=== PATIENT | female | born 1960 | race Asian ===

== ENCOUNTER 2018-05-21 10:33 | Emergency (ER) | payer SELFPAY ==
[~2018-05-21] VITALS: Ht 162.6 cm; Wt 59.0 kg
--- NOTE | 2018-05-21 10:36 | NUR ---
Arrived via BLS ambulance with compliant of dizziness and vomiting. Placed in room 1. Placed on desk monitor, blood pressure machine and pulse oximeter. To gown for exam. Side rails up. Report given to Moe JAY.
[2018-05-21 10:39] VITALS: BP_SYST 146
--- NOTE | 2018-05-21 10:45 | NUR ---
PATIENT SITTING SEMI-KRAFT'S IN BED. AAOx4. RESPIRATIONS EVEN AND UNLABORED. DENIES OF ANY SOB OR CHEST PAIN. PATIENT WITH C/O DIZZINESS, NAUSEA, AND VOMITING WHICH STARTED APPROXIMATELY 30 MINUTES PRIOR TO ARRIVAL. REST AND RELAXATION ENCOURAGED. Placed on blood pressure machine and pulse oximeter. To gown for exam. Side rails up.
--- NOTE | 2018-05-21 10:49 | NUR ---
ER Dr. BAH at bedside examining patient.
[2018-05-21] MEDS ORDERED: ONDANSETRON HCL 4 MG/2 ML VIAL IVP ONE (11:00)
[2018-05-21] MEDS ORDERED: NACL 0.9% 1,000 ML IV ONE (11:00)
[2018-05-21] MEDS ORDERED: ONDANSETRON HCL 4 MG/2 ML VIAL ONE (11:02)
--- NOTE | 2018-05-21 11:06 | NUR ---
Medicated per MD orders. IVF infusing with no s/s of infiltration at this time. Will cont to monitor
[2018-05-21 11:15] LABS: BASOPHILS % (AUTO) 0.4 % (0.0-2.0); EOSINOPHILS % (AUTO) 0.1 % (0.0-4.0); HEMATOCRIT 45.6 % (36-48); HEMOGLOBIN 15.1 g/dL (12.0-16.0); LYMPHOCYTES # (AUTO) 1.9 K/uL (1.0-5.5); LYMPHOCYTES % (AUTO) 30.7 % (20.5-51.5); MEAN CORPUSCULAR HEMOGLOBIN 29 pg (27-31); MEAN CORPUSCULAR HGB CONC 33 % (32-36); MEAN CORPUSCULAR VOLUME 89 fL (79.0-98.0); MONOCYTES # (AUTO) 0.2 K/uL (0.0-1.0); MONOCYTES % (AUTO) 2.6 % (1.7-9.3); NEUTROPHILS # (AUTO) 4.1 K/uL (1.8-7.7); NEUTROPHILS % (AUTO) 66.2 % (40.0-70.0); PLATELET COUNT (AUTO) 301 K/uL (130-430); RED BLOOD CELL COUNT(AUTO) 5.13 MIL/uL (4.2-6.2); RED CELL DISTRIBUTION WIDTH 12.5 % (9.0-15.0); WHITE BLOOD COUNT (AUTO) 6.2 K/uL (4.8-10.8)
[2018-05-21 11:25] LABS: CALCIUM 9.3 mg/dL (8.4-11.0); CREATININE 0.61 mg/dL (0.55-1.30); POTASSIUM 3.3 mmol/L (3.5-5.1)
[2018-05-21 11:29] LABS: TOTAL BILIRUBIN 0.9 mg/dL (0.0-1.0)
--- NOTE | 2018-05-21 11:30 | NUR ---
# 14 FR In and Out catheter with use of sterile technique. Immediate return of 300 ml clear yellow urine noted. Urine sample collected and sent to lab. Pt tolerated procedure well. Patient unable to toilet self. Attempted on the bed magallanes 2x.
--- NOTE | 2018-05-21 11:31 | NUR ---
Off unit for CT via [facility]
[2018-05-21 12:10] LABS: BILIRUBIN,URINE NEGATIVE (NEGATIVE); BLOOD, URINE NEGATIVE (NEGATIVE); CLARITY/URINE CLEAR (CLEAR); COLOR,URINE YELLOW (YELLOW); GLUCOSE,URINE NEGATIVE (NEGATIVE); KETONES,URINE NEGATIVE (NEGATIVE); LEUKOCYTE ESTERASE ,URINE NEGATIVE (NEGATIVE); NITRITE, URINE NEGATIVE (NEGATIVE); PROTEIN URINE 1+ (NEGATIVE); UROBILINOGEN,URINE 0.2 (0.2-1.0)
--- NOTE | 2018-05-21 12:28 | NUR ---
PT WILLING TO OPEN HER EYES BUT STATES THAT SHE IS STILL DIZZY. FRIENDS AT BEDSIDE FOR SUPPORT.
[2018-05-21 12:29] LABS: RBC,URINE 0-3 /HPF (0-3); WBC,URINE 0-3 /HPF (0-3)
[2018-05-21 12:30] LABS: BACTERIA,URINE FEW /HPF (None Seen); MUCUS,URINE 1+ /LPF (None Seen); URINE AMORPHOUS PHOSPHATES 1+ /HPF (None Seen)
--- NOTE | 2018-05-21 12:57 | NUR ---
ANTIVERT GIVEN. TOLERATED WELL. Patient resting quietly. No acute distress noted.
[2018-05-21] MEDS ORDERED: MECLIZINE HCL 25 MG TABLET (ANITVERT) PO ONE (13:00)
[2018-05-21 13:34] VITALS: BP_SYST 161
--- NOTE | 2018-05-21 13:34 | NUR ---
Patient given written and verbal discharge instructions and verbalizes understanding. ER MD discussed with patient the results and treatment provided. Patient in stable condition. ID arm band removed. IV catheter removed intact and dressing applied, no active bleeding. Rx of meclizine, norvasc given. Patient educated on pain management and to follow up with PMD. Pain Scale 0/10. Opportunity for questions provided and answered. Medication side effect fact sheet provided.
== END 2018-05-21 13:34 | disposition home or self-care (01) ==
LOC: SED 10:33
DX: R42 Dizziness and giddiness (principal); I10 Essential (primary) hypertension
CPT/HCPCS: 36415; 70450; 80053; 81000; 83690; 85025; 96361; 96374; 99284; J2405; J7030; J8597